=== PATIENT | female | born 1990 | race Caucasian/White ===

== ENCOUNTER 2018-06-26 07:48 | Inpatient (IN) ==
--- NOTE | 2018-06-26 08:52 | ED ---
History of Present Illness Primary Care Physician: No Primary Care Physician Chief Complaint: Labor History of Present Illness: 28-year-old at 42 weeks and 1 day who reports to the OB ED after a failed home . She is followed by a strawhat inspector and packer at [facility]. She reports that her membranes had been ruptured since 11 PM on . The fluid was reportedly clear blood-tinged, not meconium. She reports that her cervix was at 7 since 4 PM on 12:19. She is feeling contractions about every 3 minutes. She denies any problems during the . She is rubella nonimmune. Her last ultrasound was on Saturday and the baby is estimated to be 7 pounds. A release of information request will be completed to obtain this ultrasound. Patient is feeling baby move. She does have some vaginal spotting. Past medical history: Denies any medical history Past surgical history: None Medications: vitamin Family history: Father with hypertension Social history: Denies alcohol use, tobacco use, illicit drug use Weeks Gestation:: 42 Para: 0 : 1 - Inpatient Certification I certify that the inpatient services were ordered in accordance with Medicare regulations governing the order. This includes certification that hospital inpatient services are reasonable and necessary and in the case of services not specified as inpatient-only under 42 CFR 419.22(n), that they are appropriately provided as inpatient services in accordance to with the 2-midnight benchmark under 43 CFR 412.3(e) Review of Systems All other systems reviewed negative except as stated in HPI PMFSH - History History Provided By: Patient - Medical / Surgical Hx Neg / Unobtainable Medical Problems Denied: Yes Surgical History: No Previous Surgery - Social History I have reviewed the patient's Social History: Yes - Tobacco History Second Hand Smoke Exposure: No Tobacco Use In Past 30 Days: No - Travel History Recent Travel in the [place] Within the Last 8 Weeks: No Recent Travel Out of the Country Within the Last 8 Weeks: No Medications and Allergies Allergies Allergy/AdvReac Type Severity Reaction Status Date / Time Sulfa (Sulfonamide Allergy Intermediate Fever Verified 06/26/18 09:12 Antibiotics) Home Medications Medication Instructions Recorded Confirmed Type RX: ferrous sulfate [iron] 1 tab PO DAILY 06/26/18 06/26/18 History [id number] acid 1 tab PO DAILY 06/26/18 06/26/18 History [PreNata] Exam Vital signs: Vital Signs 06/26/18 08:15 Temperature 99.2 F Pulse Rate 84 Respiratory Rate 18 Blood Pressure 132/80 Intake & Output 06/25/18 06/26/18 06/26/18 18:59 06:59 18:59 Weight 77.111 kg Narrative: GENERAL: Well-nourished, well-developed patient, visibly uncomfortable SKIN: Warm and dry. HEAD: Normocephalic and atraumatic. EYES: No scleral icterus. No injection or drainage. ENT: No nasal drainage noted. Mucous membranes pink. Airway patent. NECK: Supple, trachea midline. No JVD. CARDIOVASCULAR: Regular rate and rhythm without murmurs, gallops, or rubs. RESPIRATORY: Breath sounds equal bilaterally. No accessory muscle use. ABDOMEN/GI: Abdomen soft, non-tender, bowel sounds present, no rebound, no guarding Gravid to 42 weeks size GENITOURINARY: External Genitalia: intact and normal in appearance Cervix: midline Dilatation: 8 Effacement: 90 Station: 1 Presentation: vertex Membranes: ruptured Uterine Contractions: Q3min FHT's: Category: 1 Baseline: 145 Reactive: yes] Variability: moderate Decels: variable EXTREMITIES: No cyanosis or edema. BACK: Nontender without obvious deformity. No CVA tenderness. NEUROLOGICAL: Awake and alert. Motor and sensory grossly within normal limits. Five out of 5 muscle strength in all muscle groups. Normal speech. Results - Labs CBC & Chem 7: 06/26/18 08:30 Assessment and Plan - Diagnosis (1) 42 weeks gestation of Code(s): Z3A.42 - 42 weeks gestation of Status: Acute Plan: 28-year-old at 42 weeks and 1 day who reports to the OB ED after a failed home . heart rate baseline 145 category 1. Cervical exam 8\90\1. -Admit to labor and delivery -Recommend penicillin due to prolonged rupture of membranes. Patient has refused antibiotics. She was counseled on the risks to her and her baby. She reports that she does not want antibiotics unless she has a fever. -We will start Pitocin - Attending Attestation The exam, history, and the medical decision-making described in the above note were completed with the assistance of the resident physician. I reviewed and agree with the findings presented. I attest that I had a [id number] encounter with the patient on the same day, and personally performed and documented my assessment and findings in the medical record. Pt refusing antibiotics even with prolonged rupture of membranes. She understands risks to her and the baby. She does not want antibiotics unless she has a fever. Discharge Plan - Physicians Team Primary Care Provider: Primary Care Bela Sullivan Attending Provider: Kinsey Cruz
[2018-06-26] MEDS ORDERED: Naloxone Inj 0.4 MG/ML Vial IV.PUSH PRN ×2 (08:55→19:43)
[2018-06-26] MEDS ORDERED: Sodium Chlor 0.9% Inj 500 ML IV.SIG PRN (08:55)
[2018-06-26] MEDS ORDERED: Sod Chloride 0.9% Inj 1,000 ML IV.CONT PRN (08:55)
[2018-06-26] MEDS ORDERED: Oxytocin 30 Units/500ml Premix 30 UNITS/500 ML BAG IV.SIG ONE (08:55)
[2018-06-26] MEDS ORDERED: fentaNYL Citrate Inj 100 MCG/2 ML Ampul IV.PUSH PRN ×2 (08:55)
[2018-06-26] MEDS ORDERED: Citric Acid/Sodium Citrate Liq 30 ML UDC PO SCH (09:00)
[2018-06-26] MEDS ORDERED: Penicillin G Potassium Inj 5,000,000 UNIT in Sodium Chloride 0.9% Inj 100 ML IV.SIG ONE (09:30)
[2018-06-26 09:47] LABS: Baso % (Auto) 0.2 % (0.0-2.0); Eos % (Auto) 0.1 % (0.0-4.0); Hematocrit 41.7 % (35.0-46.0); Hemoglobin 13.6 gm/dL (11.6-15.3); Lymph # (Auto) 0.5 th/mm3 (1.0-4.8); Lymph % (Auto) 3.3 % (9.0-44.0); Mean Corpuscular HGB Conc 32.6 % (32.0-36.0); Mean Corpuscular Hemoglobin 26.5 pg (27.0-34.0); Mean Corpuscular Volume 81.4 fL (80.0-100.0); Mean Platelet Volume 9.6 fL (7.0-11.0); Mono # (Auto) 0.9 th/mm3 (0.0-0.9); Mono % (Auto) 5.8 % (0.0-8.0); Neut # (Auto) 13.9 th/mm3 (1.8-7.7); Neut % (Auto) 90.6 % (16.0-70.0); Platelet Count 184 th/mm3 (150-450); Red Blood Count 5.12 mil/mm3 (4.00-5.30); Red Cell Distribution Width 23.9 % (11.6-17.2); White Blood Count 15.3 th/mm3 (4.0-11.0)
--- NOTE | 2018-06-26 09:52 | P.OBGPN ---
OB - ED Note Patient Name: Tabitha Cedillo Date of : 89 Patient Status: Inpatient Attending Provider: Kinsey Cruz Date: 06/26/18 08:52 Initialization Date: 06/26/18 08:52 History of Present Illness Primary Care Physician: No Primary Care Physician Chief Complaint: Labor History of Present Illness: 28-year-old at 42 weeks and 1 day who reports to the OB ED after a failed home . She is followed by a associate director data & analytics at [facility]. She reports that her membranes had been ruptured since 11 PM on . The fluid was reportedly clear blood-tinged, not meconium. She reports that her cervix was at 7 since 4 PM on :. She is feeling contractions about every 3 minutes. She denies any problems during the . She is rubella nonimmune. Her last ultrasound was on Saturday and the baby is estimated to be 7 pounds. A release of information request will be completed to obtain this ultrasound. Patient is feeling baby move. She does have some vaginal spotting. Past medical history: Denies any medical history Past surgical history: None Medications: vitamin Family history: Father with hypertension Social history: Denies alcohol use, tobacco use, illicit drug use Weeks Gestation:: 42 Para: 0 : 1 - Inpatient Certification I certify that the inpatient services were ordered in accordance with Medicare regulations governing the order. This includes certification that hospital inpatient services are reasonable and necessary and in the case of services not specified as inpatient-only under 42 CFR 419.22(n), that they are appropriately provided as inpatient services in accordance to with the 2-midnight benchmark under 43 CFR 412.3(e) Review of Systems All other systems reviewed negative except as stated in HPI PMFSH - History History Provided By: Patient - Medical / Surgical Hx Neg / Unobtainable Medical Problems Denied: Yes Surgical History: No Previous Surgery - Social History I have reviewed the patient's Social History: Yes - Tobacco History Second Hand Smoke Exposure: No Tobacco Use In Past 30 Days: No - Travel History Recent Travel in the [place] Within the Last 8 Weeks: No Recent Travel Out of the Country Within the Last 8 Weeks: No Medications and Allergies Allergies Allergy/AdvReac Type Severity Reaction Status Date / Time Sulfa (Sulfonamide Allergy Intermediate Fever Verified 06/26/18 09:12 Antibiotics) Home Medications Medication Instructions Recorded Confirmed Type ferrous sulfate [iron] 1 tab PO DAILY 06/26/18 06/26/18 History [id number] acid 1 tab PO DAILY 06/26/18 06/26/18 History [PreNata] Exam Vital signs: Vital Signs 06/26/18 08:15 Temperature 99.2 F Pulse Rate 84 Respiratory Rate 18 Blood Pressure 132/80 Intake & Output 06/25/18 06/26/18 06/26/18 18:59 06:59 18:59 Weight 77.111 kg Narrative: GENERAL: Well-nourished, well-developed patient, visibly uncomfortable SKIN: Warm and dry. HEAD: Normocephalic and atraumatic. EYES: No scleral icterus. No injection or drainage. ENT: No nasal drainage noted. Mucous membranes pink. Airway patent. NECK: Supple, trachea midline. No JVD. CARDIOVASCULAR: Regular rate and rhythm without murmurs, gallops, or rubs. RESPIRATORY: Breath sounds equal bilaterally. No accessory muscle use. ABDOMEN/GI: Abdomen soft, non-tender, bowel sounds present, no rebound, no guarding Gravid to 42 weeks size GENITOURINARY: External Genitalia: intact and normal in appearance Cervix: midline Dilatation: 8 Effacement: 90 Station: 1 Presentation: vertex Membranes: ruptured Uterine Contractions: Q3min FHT's: Category: 1 Baseline: 145 Reactive: yes] Variability: moderate Decels: variable EXTREMITIES: No cyanosis or edema. BACK: Nontender without obvious deformity. No CVA tenderness. NEUROLOGICAL: Awake and alert. Motor and sensory grossly within normal limits. Five out of 5 muscle strength in all muscle groups. Normal speech. Results - Labs CBC & Chem 7: 06/26/18 08:30 Assessment and Plan - Diagnosis (1) 42 weeks gestation of Code(s): Z3A.42 - 42 weeks gestation of Status: Acute Plan: 28-year-old at 42 weeks and 1 day who reports to the OB ED after a failed home . heart rate baseline 145 category 1. Cervical exam 8\90\1. -Admit to labor and delivery -Recommend penicillin due to prolonged rupture of membranes. Patient has refused antibiotics. She was counseled on the risks to her and her baby. She reports that she does not want antibiotics unless she has a fever. -We will start Pitocin Discharge Plan - Discharge Disposition Patient Disposition: [place] [facility] [place] Condition Condition: Stable - Physicians Team Primary Care Provider: Primary Care Bela Sullivan Attending Provider: Kinsey Cruz Attending Attestation The exam, history, and the medical decision-making described in the above note were completed with the assistance of the resident physician. I reviewed and agree with the findings presented. I attest that I had a [id number]-ue-kvie encounter with the patient on the same day, and personally performed and documented my assessment and findings in the medical record. Pt refusing antibiotics even with prolonged rupture of membranes. She understands risks to her and the baby. She does not want antibiotics unless she has a fever.
[2018-06-26] MEDS ORDERED: Oxytocin 30 Units/500ml Premix 30 UNITS/500 ML BAG IV.SIG PRN (10:16)
[2018-06-26] MEDS ORDERED: Lidocaine 1% Inj 50 ML Vial ONE (10:22)
[2018-06-26] MEDS ORDERED: fentaNYL 2MCG-Bupiv 0.125% Epi 150 ML EPIDURAL ONE (11:01)
--- NOTE | 2018-06-26 11:22 | P.OBGPN ---
Attending note : 28-year-old at 42+ weeks with prolonged rupture of membranes. I received a signout regarding this patient refusing antibiotic in spite of prolonged rupture. I went in to talk to the patient regarding alternatives benefits and complications and increased morbidity mortality for the patient and/or her fetus /. Patient's mother was quite irate and hostile-stated that she had been ruptured for 4 days without any sequelae. I made it clear to all who were involved including the patient's mother and patient that we are discussing statistically as well as clinically having been in practice for some time the risk that it poses. She is requesting an epidural and was made aware that there is fever that can be associated with epidural analgesia and will be difficult to tell the difference between chorioamnionitis versus epidural fever. I have talked to the charge nurse Lucina to have patient sign a refusal of treatment form. I have been aware by the nurse caring for the patient that she is changed her mind regarding the antibiotics and will except and also desires the epidural. Her last exam she was 8 cm dilated-we will continue to follow closely.
--- NOTE | 2018-06-26 11:48 | P.HPOB ---
History of Present Illness Primary Care Physician: No Primary Care Physician Chief Complaint: Labor History of Present Illness: LATE ENTRY From Ed physician documentation: 28-year-old at 42 weeks and 1 day who reports to the OB ED after a failed home . She is followed by a label maker at [facility]. She reports that her membranes had been ruptured since 11 PM on . The fluid was reportedly clear blood-tinged, not meconium. She reports that her cervix was at 7 since 4 PM on 12:19. She is feeling contractions about every 3 minutes. She denies any problems during the . She is rubella nonimmune. Her last ultrasound was on Saturday and the baby is estimated to be 7 pounds. A release of information request will be completed to obtain this ultrasound. Patient is feeling baby move. She does have some vaginal spotting. Past medical history: Denies any medical history Past surgical history: None Medications: vitamin Family history: Father with hypertension Social history: Denies alcohol use, tobacco use, illicit drug use Weeks Gestation:: 42 - Inpatient Certification I certify that the inpatient services were ordered in accordance with Medicare regulations governing the order. This includes certification that hospital inpatient services are reasonable and necessary and in the case of services not specified as inpatient-only under 42 CFR 419.22(n), that they are appropriately provided as inpatient services in accordance to with the 2-midnight benchmark under 43 CFR 412.3(e) Estimated Total Length of Stay (Days): 2 Plans for Post Hospital Care: Home Review of Systems All other systems reviewed negative except as stated in HPI PMFSH - History History Provided By: Patient - Medical / Surgical Hx Neg / Unobtainable Medical Problems Denied: Yes - Social History I have reviewed the patient's Social History: Yes - Tobacco History Second Hand Smoke Exposure: No Tobacco Use In Past 30 Days: No - Travel History Recent Travel in the [place] Within the Last 8 Weeks: No Recent Travel Out of the Country Within the Last 8 Weeks: No Medications and Allergies Allergies Allergy/AdvReac Type Severity Reaction Status Date / Time Sulfa (Sulfonamide Allergy Intermediate Fever Verified 06/26/18 09:12 Antibiotics) Home Medications Medication Instructions Recorded Confirmed Type ferrous sulfate [iron] 1 tab PO DAILY 06/26/18 06/26/18 History [id number] acid 1 tab PO DAILY 06/26/18 06/26/18 History [PreNata] Active Medications: Active Medications Citric Acid/Sodium Citrate (Sodium Citrate/Citric Acid Liq) 30 ml PO SOCIAL SERVICES ASSISTANT [facility] Stop: 06/30/18 08:59 Fentanyl Citrate (Fentanyl Inj) 50 mcg IV.PUSH Q1H PRN PRN Reason: Pain Scale 3 - 5 Fentanyl Citrate (Fentanyl Inj) 100 mcg IV.PUSH Q1H PRN PRN Reason: PAIN SCALE 6 TO 10 Lactated Ringer's (Lr 1000 Ml Inj) 1,000 mls @ 125 mls/hr IV.CONT .Q8H [facility] Last Admin: 06/26/18 10:53 Dose: 125 mls/hr Lactated Ringer's (Lr 1000 Ml Inj) 1,000 mls @ 3,000 mls/hr IV.SIG UNSCH PRN PRN Reason: compromise or epidural Sodium Chloride (Ns Inj) 500 mls @ 1,000 mls/hr IV.SIG UNSCH PRN PRN Reason: SEE LABEL COMMENTS Sodium Chloride (Ns Inj) 1,000 mls @ 100 mls/hr IV.CONT .Q10H PRN PRN Reason: SEE LABEL COMMENTS Oxytocin (Pitocin 30 Units/Ns 500 Ml Premix) 30 units in 500 mls @ 1 mls/hr IV.SIG TITRATE PRN; Protocol PRN Reason: For induction of labor Lidocaine HCl (Xylocaine 1% Inj) 0.1 ml I-DERMAL PRN PRN PRN Reason: For IV start Stop: 06/29/18 08:54 Lidocaine HCl (Xylocaine 1% Inj) 10 ml INFILTRATN PRN PRN PRN Reason: For episiotomy repair Stop: 06/28/18 08:54 Mineral Oil (Muri-Lube Oil) 10 ml TOPICAL PRN PRN PRN Reason: PRN perineal massage Naloxone HCl (Narcan Inj) 0.1 mg IV.PUSH Q2M PRN PRN Reason: for opiate reversal Exam Vital signs: Vital Signs 06/26/18 08:15 06/26/18 09:58 06/26/18 11:28 Temperature 99.2 F 99.4 F Pulse Rate 84 90 90 Respiratory Rate 18 20 20 Blood Pressure 132/80 145/65 H 140/90 06/26/18 11:36 06/26/18 11:40 06/26/18 11:41 Temperature Pulse Rate 86 95 H Respiratory Rate 20 Blood Pressure 152/92 H 144/81 H 06/26/18 11:44 Temperature 99.4 F Pulse Rate Respiratory Rate Blood Pressure Intake & Output 06/25/18 06/26/18 06/26/18 18:59 06:59 18:59 Intake Total 1000 / 1000 Balance 1000 / 1000 Weight 77.111 kg Intake: IV 1000 / 1000 LR 1000 mL Inj 1,000 ML @ 125 1000 / 1000 mls/hr IV.CONT .Q8H [facility] Rx#: [id number] Narrative: GENERAL: Well-nourished, well-developed patient, visibly uncomfortable SKIN: Warm and dry. HEAD: Normocephalic and atraumatic. EYES: No scleral icterus. No injection or drainage. ENT: No nasal drainage noted. Mucous membranes pink. Airway patent. NECK: Supple, trachea midline. No JVD. CARDIOVASCULAR: Regular rate and rhythm without murmurs, gallops, or rubs. RESPIRATORY: Breath sounds equal bilaterally. No accessory muscle use. ABDOMEN/GI: Abdomen soft, non-tender, bowel sounds present, no rebound, no guarding Gravid to 42 weeks size GENITOURINARY: External Genitalia: intact and normal in appearance Cervix: midline Dilatation: 8 Effacement: 90 Station: 1 Presentation: vertex Membranes: ruptured Uterine Contractions: Q3min FHT's: Category: 1 Baseline: 145 Reactive: yes] Variability: moderate Decels: variable EXTREMITIES: No cyanosis or edema. BACK: Nontender without obvious deformity. No CVA tenderness. NEUROLOGICAL: Awake and alert. Motor and sensory grossly within normal limits. Five out of 5 muscle strength in all muscle groups. Normal speech. Results - Labs CBC & Chem 7: 06/26/18 08:30 Labs: Laboratory Results - last 24 hr 06/26/18 06/26/18 08:30 08:30 WBC 15.3 H RBC 5.12 Hgb 13.6 Hct 41.7 MCV 81.4 MCH 26.5 L MCHC 32.6 RDW 23.9 H Plt Count 184 MPV 9.6 Neut % (Auto) 90.6 H Lymph % (Auto) 3.3 L [place] % (Auto) 5.8 Eos % (Auto) 0.1 Baso % (Auto) 0.2 Neut # (Auto) 13.9 H Lymph # (Auto) 0.5 L [place] # (Auto) 0.9 Eos # (Auto) 0.0 Baso # (Auto) 0.0 WBC Differential . Differential Comment Auto diff final Blood Type O Positive Blood Type Recheck Required Antibody Screen Negative Caprini VTE Risk Assessment Caprini VTE Risk Assessment: Moderate/High Risk (score >= 2) Caprini Risk Assessment Model: Point Value = 1 Point Value = 2 Point Value = 3 Point Value = 5 Age 41-60 Minor surgery BMI > 25 kg/m2 Swollen legs Varicose veins or History of unexplained or recurrent spontaneous Oral contraceptives or hormone replacement Sepsis (< 1 month) Serious lung disease, including pneumonia (< 1 month) Abnormal pulmonary function Acute myocardial infarction Congestive heart failure (< 1 month) History of inflammatory bowel disease Medical patient at bed rest Age 61-74 Arthroscopic surgery Major open surgery (> 45 min) Laparoscopic surgery (> 45 min) Malignancy Confined to bed (> 72 hours) Immobilizing plaster cast Central venous access Age >= 75 History of VTE Family history of VTE Factor V Leiden Prothrombin 12260E Lupus anticoagulant Anticardiolipin antibodies Elevated serum homocysteine Heparin-induced thrombocytopenia Other congenital or acquired thrombophilia Stroke (< 1 month) Elective arthroplasty Hip, pelvis, or leg fracture Acute spinal cord injury (< 1 month) Prophylaxis Regimen: Total Risk Factor Score Risk Level Prophylaxis Regimen 0-1 Low Early ambulation 2 Moderate Order ONE of the following: *Sequential Compression Device (SCD) *Heparin 5000 units SQ BID 3-4 Higher Order ONE of the following medications: *Heparin 5000 units SQ TID *Enoxaparin/Lovenox 40 mg SQ daily (WT < 150 kg, CrCl > 30 mL/min) *Enoxaparin/Lovenox 30 mg SQ daily (WT < 150 kg, CrCl > 10-29 mL/min) *Enoxaparin/Lovenox 30 mg SQ BID (WT < 150 kg, CrCl > 30 mL/min) AND/OR *Sequential Compression Device (SCD) 5 or more Highest Order ONE of the following medications: *Heparin 5000 units SQ TID (Preferred with Epidurals) *Enoxaparin/Lovenox 40 mg SQ daily (WT < 150 kg, CrCl > 30 mL/min) *Enoxaparin/Lovenox 30 mg SQ daily (WT < 150 kg, CrCl > 10-29 mL/min) *Enoxaparin/Lovenox 30 mg SQ BID (WT < 150 kg, CrCl > 30 mL/min) AND *Sequential Compression Device (SCD) Assessment and Plan - Diagnosis (1) 42 weeks gestation of Code(s): Z3A.42 - 42 weeks gestation of Status: Acute Plan: 28-year-old at 42 weeks and 1 day who reports to the OB ED after a failed home . heart rate baseline 145 category 1. Cervical exam 8\90\1. -Admit to labor and delivery -Recommend penicillin due to prolonged rupture of membranes. Patient has refused antibiotics. She was counseled on the risks to her and her baby. She reports that she does not want antibiotics unless she has a fever. A refusal form was signed. -We will start Pitocin - Attending Attestation The exam, history, and the medical decision-making described in the above note were completed with the assistance of the resident physician. I reviewed and agree with the findings presented. I attest that I had a [id number] encounter with the patient on the same day, and personally performed and documented my assessment and findings in the medical record.
[2018-06-26] MEDS ORDERED: fentaNYL 2MCG-Bupiv 0.125% Epi 150 ML EPIDURAL PRN (12:33)
[2018-06-26] MEDS ORDERED: fentaNYL Citrate Inj 100 MCG/2 ML Ampul EPIDURAL ONE (13:00)
--- NOTE | 2018-06-26 14:44 | P.OBGPN ---
Patient seen and evaluated-cervix is now progressed to an anterior lip/90% effaced/-1 station. Patient was counseled that she has fallen off the labor curve for quite some time but she is not desiring to have a delivery and she understands the complications associated. However at this time she is comfortable with the epidural, heart rate status is category 1-will continue with Pitocin augmentation as long as status tolerates. Of note she also agreed to IV antibiotics she had a temperature earlier 99.4 now temp is 98.6 continue to monitor maternal and status
[2018-06-26] MEDS ORDERED: Measles/Mumps/Rubella Vaccine Inj 0.5 ML Vial SQ ONE (16:00)
[2018-06-26] MEDS ORDERED: Diphtheria/Tetanus/Pertussis Vaccine Inj 0.5 ML Syringe IM ONE (16:00)
[2018-06-26] MEDS ORDERED: Penicillin G Potassium Inj 2,500,000 UNIT in Sodium Chlor 0.9% Inj 100 ML IV.SIG ONE (17:00)
[2018-06-26] MEDS ORDERED: miSOPROStol 200 MCG Tablet ONE (19:33)
[2018-06-26] MEDS ORDERED: Zolpidem Tartrate 5 MG Tablet PO PRN (19:43)
[2018-06-26] MEDS ORDERED: Acetaminophen 325 MG Tablet PO PRN (19:43)
[2018-06-26] MEDS ORDERED: Oxytocin 30 Units/500ml Premix 30 UNITS/500 ML BAG IV.CONT PRN (19:43)
[2018-06-26] MEDS ORDERED: Witch Hazel 50%/Glyderin 12.5% 40 Pad Jar RECTAL PRN (19:43)
[2018-06-26] MEDS ORDERED: Bisacodyl 10 MG Supp RECTAL PRN (19:43)
[2018-06-26] MEDS ORDERED: Benzocaine 20% Top Spray 60 ML Can TOPICAL PRN (19:43)
--- NOTE | 2018-06-26 20:04 | P.OBDELI ---
Weeks Gestation: 42 Patient Started Active Labor: Yes Medical Induction of Labor: No Artificial Rupture of Membrane: No Anesthesia: Epidural Episiotomy: none Vaginal Delivery: Normal Presentation: Occiput anterior Nuchal Cord: x1 Delayed Cord Clamping (45 sec): Yes Laceration: 2 deg Repair: Chromic interrupted Estimated blood loss (mL): 200 : Male Male A Infant Delivery Date: 06/26/18 Delivery Time: 19:14 Weight: 4.215 kg score (1 min): 8 score (5 min): 9 Additional Information: Head delivered by maternal effort. Nuchal cord X1. Shoulder delivered without complication. Placenta delivered without complication. 2nd degree perineal repair interrupted using 3.0 then 2.0 chromic. Placental cultures taken of maternal and surface. Delivery performed by Dr. Aj and Dr. Vargas.
[2018-06-26] MEDS: miSOPROStol 200 MCG Tablet PO SCH (20:12)
[2018-06-26 23:25] LABS: Amorphous Sediment,Urine Rare /hpf; Bilirubin,Urine Negative (Negative); Clarity,Urine Cloudy (Clear); Color,Urine Amber (Yellw/Straw); Glucose,Urine (UA) Negative (Negative); Leukocyte Esterase,Urine Moderate (Negative); Mucus,Urine Few /lpf (Occasional); Nitrite,Urine Negative (Negative); Renal Epithelial Cells,Urine 2 /hpf; Specific Gravity,Urine 1.024 (1.002-1.035); Squamous Epithelial Cell,Urine 8 /hpf (0-5)
[2018-06-27] MEDS: Senna/Docusate Sodium 8.6/50 MG Tablet PO SCH ×3 (03:06→22:25)
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
[2018-06-27] MEDS: miSOPROStol 200 MCG Tablet PO SCH ×4 (09:45→18:15)
[2018-06-27] MEDS ORDERED: Ibuprofen 400 MG Tablet PO PRN (14:13)
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
[2018-06-28] MEDS: Senna/Docusate Sodium 8.6/50 MG Tablet PO SCH (09:23)
[2018-06-28] MEDS: miSOPROStol 200 MCG Tablet PO SCH (09:23)
--- NOTE | 2018-07-02 11:28 | P.PNADD ---
Addendum to Inpatient Note Reason for Addendum: Additional Documentation Additional information: Called patient to inform her of her culture results. She did not answer. I left message for patient to return my call to [phone].
== END 2018-06-28 16:15 | disposition home or self-care (01) ==
LOC: HOBED 07:48 → H2E 08:24 → H1EA 22:28
PROVIDERS: ADMIT Obstetrics & Gynecology; ATTEND Obstetrics & Gynecology